=== PATIENT | female | born 1940 | race Caucasian/White ===

== ENCOUNTER 2016-10-26 10:29 | Emergency (ER) | payer OTHER, BC, MEDICARE ==
[~2016-10-26] VITALS: Ht 162.6 cm; Wt 68.0 kg
[~2016-10-26 10:29] MED LIST: AMOX-CLAV 500-1 EACH PO; ASPIRIN CHILDRE81 MG PO; ATORVASTATIN CA40 MG PO; CORTEF10 M1 PO; CORTEF20 M1 PO; COZAAR50 M1 PO; KEFLEX500 MG PO; POTASSIUM CHLO10 ME5 PO; SPIRIVA18 MCG INH; SYNTHROID112 MCG PO; TYLENOL TAB 32325 MG PO; TYLENOL500 MG PO; VERAPAMIL ER180 M1 PO; VITAMIN D1000 UNIT PO; VOLTAREN GEL1% TOP; WOMEN'S DAILY1 TAB PO
[2016-10-26 12:23] LABS: ABSOLUTE BASOPHIL COUNT 0 /CUMM (0.0-0.2); ABSOLUTE EOSINOPHIL COUNT 0.1 /CUMM (0.0-0.7); ABSOLUTE LYMPH COUNT 1.1 /CUMM (1.2-3.4); ABSOLUTE MONOCYTE COUNT 0.6 /CUMM (0.10-0.60); BASOPHIL % 0.5 % (0.0-2.0); EOSINOPHIL % 1.3 % (0-5); GRANULOCYTE % 77.3 % (42.2-75.2); HEMATOCRIT 36.9 % (37-47); MEAN CORPUSCULAR HGB 28.9 PG (27.0-31.0); MEAN CORPUSCULAR HGB CONC 33.4 G/DL (33.0-37.0); MEAN CORPUSCULAR VOLUME 86.4 FL (81.0-99.0); MEAN PLATELET VOLUME 7.3 FL (7.4-10.4); PLATELET COUNT 238 /CUMM (130-400); RBC DISTRIBUTION WIDTH 13.3 % (11.5-14.5); RED BLOOD CELL CT 4.26 /CUMM (4.20-5.40); WHITE BLOOD CELL COUNT 7.8 /CUMM (4.8-10.8)
--- NOTE | 2016-10-26 13:11 | RADIOLOGY REPORT ---
EXAMINATION: XR PORTABLE CHEST CLINICAL INFORMATION: Altered mental status COMPARISON: None TECHNIQUE: Portable AP view of the chest was obtained. FINDINGS: There is no failure here. Minimal change at the lung bases may be due to overlying soft tissue. Some mild atelectasis or infiltrate cannot be excluded. PA and lateral films recommended when the patient is able. The mid-upper lung zones are grossly clear. IMPRESSION: Basilar areas are not well evaluated. This may be due to projection or overlying soft tissue. Right lateral basilar process cannot be excluded but again this may be artifactual. Recommend PA and lateral films when the patient is able. There is certainly no failure.
[2016-10-26] MEDS ORDERED: ASPIRIN81 M4 PO (14:01)
[2016-10-26] MEDS ORDERED: CORTEF10 M1 PO (14:02)
[2016-10-26 14:29] VITALS: BP 129/68
--- NOTE | 2016-10-26 15:12 | ED GENERAL ADULT ---
History of Present Illness General Chief Complaint: General Adult Stated Complaint: BLURRED VISION,OFF BALANCE, SLURRED SPEACH X 1DAY Source: patient Exam Limitations: no limitations Vital Signs & Intake/Output Vital Signs & Intake/Output ED Intake and Output 10/27 0000 10/26 1200 Intake Total 1000 Output Total Balance 1000 Intake, IV 1000 Patient 150 lb Weight Allergies Coded Allergies: Iodinated Contrast Media - Oral and (IODINATED CONTRAST MEDIA - IV DYE) (ITCHING , SLEEP, SOB, DIZZY, RACING HEART 04/01/16) Sulfa (Sulfonamide Antibiotics) (SOB, HEART RACING, DIZZY 04/01/16) amoxicillin (SOB, HEART RACING, DIZZY 04/01/16) ciprofloxacin (From CIPRO) (UNKNOWN 10/26/16) clarithromycin (SOB, HEART RACING, DIZZY 04/01/16) clavulanic acid (SOB, HEART RACING, DIZZY 04/01/16) cyclobenzaprine (FACE, WRISTS AND FEET SWELLED 04/01/16) doxazosin (SOB, HEART RACING, DIZZY 04/01/16) sulfamethoxazole (From SEPTRA) (SOB, HEART RACING, DIZZY 04/01/16) trimethoprim (From SEPTRA) (SOB, HEART RACING, DIZZY 04/01/16) Reconcile Medications Aspirin (Aspirin*) 81 MG TAB.CHEW 1 TAB PO DAILY CVA (Reported) Cholecalciferol (Vitamin D3) (Vitamin D) 1,000 UNIT TABLET 3 TAB PO DAILY SUPPLEMENT (Reported) Hydrocortisone (Cortef) 20 MG TABLET 1 TAB PO QAM PITUITARY GLAND (Reported) Hydrocortisone (Cortef) 10 MG TABLET 1 TAB PO QPM UNKNOWN (Reported) Levothyroxine Sodium (Synthroid) 112 MCG TABLET 1 TAB PO DAILY AC THYROID ( Reported) Losartan Potassium (Cozaar) 50 MG TABLET 1 TAB PO DAILY HEART (Reported) Nitrofurantoin Macrocrystal (Nitrofurantoin) 100 MG CAPSULE 1 CAP PO BID UTI Potassium Chloride 10 MEQ TAB.ER.PRT 1 TAB PO DAILY SUPPLEMENT (Reported) Tiotropium [place] (Spiriva) 18 MCG CAP.W.DEV 1 CAP INH DAILY COPD (Reported) Verapamil HCl (Verapamil ER) 180 MG TABLET.ER 1 TAB PO DAILY HEART (Reported) Triage Note: 76 Y/O FEMALE C/O RIGHT"), FEELING OFF BALANCE, TROUBLE SWALLOWING, AND INCREASED URINATION SINCE YESTERDAY. STATES SHE SPOKE WITH HER SON ON THE PHONE YESTERDAY AND HE RECOGNIZED "YOU DON'T SOUND RIGHT". PT STATES SHE CONTINUES TO FEEL HER SPEECH IS OFF. SPEECH CLEAR IN TRIAGE THOUGHT DAUGHTER STATES "IT ISNT RIGHT". NO FACIAL DROOP NOTED. NO UNILATERAL WEAKNESS NOTED. PT ALSO STATES SHE HAS BEEN CONSTANTLY URINATING SINCE YESTERDAY. AFEBRILE. Triage Nurses Notes Reviewed? 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 She reports many past urinary tract infections for which she is followed by Dr. Cintron. She was seen reportedly last month for which she was recommeneded to straight cath herself. She reports new onset fatigue, slurred speech, and frequent urination. S She denies any new blurred/double vision, lightheadedness/dizzyness, chest pain, palpitations, shortness of breath, nausea, vomiting, diarrhea. (DELANO REDMAN,JAILYN) Past History Travel History Traveled to [place] past 21 day No Medical History Any Pertinent Medical History? see below for history Neurological: CVA EENT: cataracts Cardiovascular: hypertension, hyperlipidemia Respiratory: mild COPD Gastrointestinal: hx of colon adenomas, with last colonoscopy 04/02/2009. diverticulosis coli. 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 Blood Disorders: NONE Cancer(s): basal cell carcinoma CREDIT PROCESSOR/Reproductive: NONE History of MRSA: No History of VRE: No History of CDIFF: No Pneumonia Vaccine: 01/15/14 Surgical History Surgical History: appendectomy, cholecystectomy, cataract removal, BASAL CELL CA REMOVED 2001 PITUITARY GLAND AND TUMOR REMOVED 1981 benign pituitary tumor 1981 Psychosocial History Who do you live with Spouse Services at Home None What is your primary language Jamaican Tobacco Use: Quit >30 days ago Family History Family History, If Any: MOTHER, , Age 80; Cause: COPD (chronic obstructive pulmonary disease). FATHER, , Age 80; Cause: Prostate CA. Relation not specified for: *No pertinent family history Hx Contributory? No (JAILYN WICK MD) Review of Systems Review of Systems Constitutional: Reports: see HPI. (JAILYN WICK MD) Physical Exam Physical Exam General Appearance: well developed/nourished, no apparent distress, alert, awake Comments: General - well developed, well nourished pleasant elderly woman in no acute distress HEENT - NCAT, EOMI, PERRLA, anicteric sclera, moist mucous membranes CVS - S1, S2 w/o m/g/r Resp - CTA bilaterally GI - soft, nontender, nondistended, bowel sounds intact, no cva tenderness Neuro - Awake and alert, CN II - XII grossly intact, normal bedside swallow evaluation, normal speech and gait, no facial droop Ext - normal pulses, no cyanosis/clubbing/edema Core Measures ACS in differential dx? No CVA/TIA Diagnosis: No Severe Sepsis Present: No Septic Shock Present: No (JAILYN WICK MD) Progress Differential Diagnoses I considered the following diagnoses in my evaluation of the patient: urinary tract infection, sepsis, stroke, tia Plan of Care: Orders Procedure Date/time Status RAPID VIRAL INFLUENZA A 10/26 1145 Complete CULTURE,URINE 10/26 1145 Active BLOOD CULTURE 10/26 1145 Active URINALYSIS 10/26 1145 Complete TROPONIN LEVEL 10/26 1145 Complete COMPREHENSIVE METABOLIC PANEL 10/26 1145 Complete CBC WITHOUT DIFFERENTIAL 10/26 1145 Complete EKG 10/26 1049 Active Laboratory Tests 10/26/16 1207: Anion Gap 9, Estimated GFR 44 L, BUN/Creatinine Ratio 11.7, Glucose 89, Calcium 9.2, Total Bilirubin 0.7, AST 32, ALT 40, Alkaline Phosphatase 68, Troponin I < 0.01, Total Protein 7.0, Albumin 4.0, Globulin 3.0, Albumin/Globulin Ratio 1.3, CBC w Diff NO MAN DIFF REQ, RBC 4.26, MCV 86.4, MCH 28.9, RDW 13.3, MPV 7.3 L, Gran % 77.3 H, Lymphocytes % 13.7 L, Monocytes % 7.2, Eosinophils % 1.3, Basophils % 0.5, Absolute Granulocytes 6.0, Absolute Lymphocytes 1.1 L, Absolute Monocytes 0.6, Absolute Eosinophils 0.1, Absolute Basophils 0, PUBS MCHC 33.4 10/26/16 1200: Urine Color YEL, Urine Clarity HAZY H, Urine pH 6.0, Ur Specific [place] 1.010, Urine Protein TRACE H, Urine Ketones NEG, Urine Nitrite POS H, Urine Bilirubin NEG, Urine Urobilinogen 0.2, Ur Leukocyte Esterase LARGE H, Ur Microscopic SEDIMENT EXAMINED, Urine RBC 5-10 H, Urine WBC 50-75 H, Ur Epithelial Cells FEW, Granular Casts RARE H, Urine Hemoglobin MOD H, Urine Glucose NEG Microbiology 10/26 1210 NASOPHARYN: Influenza Virus A & B Rapid Smear - COMP 10/26 1207 BLOOD: Blood Culture - RECD 10/26 1200 URINE ROUT: Urine Culture - RECD 10/26 1200 BLOOD: Blood Culture - RECD Initial ED EKG: normal axis, normal intervals, normal p-waves, normal QRS complex, normal sinus rhythm Comments: Patient with an extensive history of cardiovascular disease with CVA and recurrent UTIs seen for evaluation of altered mental status and frequent urination. Records obtained from her vascular surgeons office demonstrate stable carotid artery disease. Given her grossly normal neurologic examination it is unlikely patient is having an acute cerebrovascular event. Urinalysis was suggestive of a urinary tract infection. Her medical record demonstrates multiple drug sensitivities and urine culture history demonstrates previous history of multiple resistant organisms. It was felt due to patients clinic appearance and condition it would be beneficial to discharge patient on an antibiotic with instruction to follow up with her PCP and urologist after discharge. Problem List: -Altered mental status -Urinary Tract Infection -Hx of recurrent UTI -Hx of CVA Plan: -CBC: WBC 7.8 -CMP: BUN/Cr 14/1.2 -Trop: <0.01 -UA: WBC 50-75, Few epithelial cells, Positive LE/Nitrite, mod hemoglobin -Urine/Blood cultures -Ceftriaxone 1g IV ONCE (JAILYN WICK MD) Departure Departure Disposition: HOME OR SELF CARE Condition: Stable Clinical Impression Primary Impression: Urinary tract infection Qualifiers: Urinary tract infection type: acute cystitis Hematuria presence: with hematuria Qualified Code: N30.01 - Acute cystitis with hematuria Referrals: CHIARA REDMAN,MARINA Lawler (PCP/Family) Additional Instructions: Take ciprofloxacin as direct for your urinary tract infection. Follow up with your Urologist after discharge. Departure Forms: Customer Survey General Discharge Information Prescriptions: Current Visit Scripts Nitrofurantoin Macrocrystal (Nitrofurantoin) 1 CAP PO BID #[id number] CAP (JAILYN WICK MD) PA/VEHICLE BODY BUILDER Co-Sign Statement Statement: ED Attending supervision documentation- x I saw and evaluated the patient. I have also reviewed all the pertinent lab results and diagnostic results. I agree with the findings and the plan of care as documented in the PA's/VEHICLE BODY BUILDER's documentation. [] I have reviewed the ED Record and agree with the PA's/VEHICLE BODY BUILDER's documentation. [] Additions or exceptions (if any) to the PAs/VEHICLE BODY BUILDER's note and plan are summarized below: [] Resident Co-Sign Statement Statement: ED Attending supervision documentation- [X] I saw and evaluated the patient. I have also reviewed all the pertinent lab results and diagnostic results. I agree with the findings and the plan of care as documented in the Resident's documentation. [] I have reviewed the ED Record and agree with the Resident's documentation. [] Additions or exceptions (if any) to the Resident's note and plan are summarized below: [] (MANNIE MCCLELLAN MD) Critical Care Note Critical Care Note Critical Care Time: non-applicable (JAILYN WICK MD)
[2016-10-26] MEDS ORDERED: NITROFURANTOIN100 M5 PO (15:31)
== END 2016-10-26 15:50 ==
LOC: ERH 10:29
PROVIDERS: Internal Medicine Interventional Cardiology
DX: N39.0 Urinary tract infection, site not specified (principal); R47.81 Slurred speech; I10 Essential (primary) hypertension; Z87.891 Personal history of nicotine dependence
CPT/HCPCS: 81001; 87040; 87086; 87804; 87804-59; 93005; 93010; 96361; 96374; J0696